=== PATIENT | male | born 1990 | race Caucasian/White ===

== ENCOUNTER 2017-09-20 14:02 | Emergency (ER) | payer MEDICAID ==
[2017-09-20 14:21] VITALS: BP 129/70
== END 2017-09-20 14:22 | disposition left against medical advice (07) ==
LOC: ED 14:02
DX: Z53.21 Procedure and treatment not carried out due to patient leaving prior to being seen by health care provider (principal)

== ENCOUNTER 2017-09-21 06:58 | Emergency (ER) | payer MEDICAID ==
[~2017-09-21] VITALS: Ht 175.3 cm; Wt 77.1 kg
[2017-09-21 07:11] VITALS: BP 117/58; Ht 175.3 cm; Wt 77.1 kg
== END 2017-09-21 07:52 | disposition home or self-care (01) ==
LOC: ED 06:58
DX: L02.415 Cutaneous abscess of right lower limb (principal)

== ENCOUNTER 2017-09-22 07:51 | Emergency (ER) | payer MEDICAID ==
[~2017-09-22] VITALS: Ht 175.3 cm; Wt 76.3 kg
[2017-09-22 07:59] VITALS: Ht 175.3 cm; Wt 76.3 kg
[2017-09-22 09:11] VITALS: BP 165/100
== END 2017-09-22 09:11 | disposition home or self-care (01) ==
LOC: ED 07:51
DX: L03.115 Cellulitis of right lower limb (principal); L30.9 Dermatitis, unspecified
CPT/HCPCS: J0696